=== PATIENT | female | born 1935 | race Hispanic/Latino ===

== ENCOUNTER 2017-12-29 09:12 | Day surgery (SDC) | payer MEDICARE ==
[2017-12-29] MEDS ORDERED: SUBLIMAZE IV ONE (10:20)
[2017-12-29 10:27] LABS: Basophils % (Auto) 0.5 % (0.0-1.8); Eosinophils # (Auto) 0.1 K/mm3 (0.0-0.4); Eosinophils % (Auto) 1.6 % (0.0-4.3); Hematocrit 40.5 % (30.3-42.9); Hemoglobin 13.6 gm/dl (10.1-14.3); Lymphocytes # (Auto) 1.3 K/mm3 (1.2-5.4); Lymphocytes % (Auto) 15.5 % (13.4-35.0); Mean Corpuscular HGB Conc 33 % (30-34); Mean Corpuscular Hemoglobin 27 pg (28-32); Mean Corpuscular Volume 82 fl (79-97); Monocytes # (Auto) 0.9 K/mm3 (0.0-0.8); Monocytes % (Auto) 11.2 % (0.0-7.3); Platelet Count 286 K/mm3 (140-440); Red Blood Count 4.95 M/mm3 (3.65-5.03); Red Cell Distribution Width 15.3 % (13.2-15.2)
[2017-12-29 10:38] LABS: INR 1.01 (0.87-1.13); Partial Thromboplastin Time 28.2 Sec. (24.2-36.6)
[2017-12-29] MEDS ORDERED: VERSED IV ONE (10:52)
--- NOTE | 2017-12-29 12:24 | Cat Scan Report ---
CT BIOPSY LUNG LEFT History: Left lung mass. Description of procedure: Informed consent was obtained. Sterile technique was utilized. Moderate sedation was accomplished with Versed and fentanyl. The patient was sedated for 15 minutes. Independent cardiorespiratory monitoring by RN. Intraobserver time of [address] guidance, a 19-gauge introducer needle was advanced to the margin of an approximate 4 cm cavitary mass in the posterior left lower lobe. 3 separate 2 cm 20-gauge core biopsies were obtained. Pathology was present and was satisfied with the samples. No complications. IMPRESSION: Successful CT guided biopsy of the 4 cm cavitary mass in the left lower lobe.
[2017-12-29 14:25] VITALS: BP 120/42
--- NOTE | 2017-12-29 14:30 | XRay Report ---
AP CHEST: HISTORY: Lung mass, recent CT-guided left lung biopsy Recent CT-guided biopsy of a 4 cm left lower lobe mass was performed. The mass is vaguely visualized. There is no evidence for pneumothorax. The right lung is well-aerated. Heart and mediastinal structures are unremarkable. IMPRESSION: No evidence for pneumothorax.
== END 2017-12-29 14:45 | disposition home or self-care (01) ==
LOC: CATHLABREC 09:12
PROVIDERS: ATTEND Specialist
DX: C34.32 Malignant neoplasm of lower lobe, left bronchus or lung (principal); Z79.01 Long term (current) use of anticoagulants
CPT/HCPCS: 32405; 36415; 71045; 77012; 85025; 85610; 85730; 88305; 88333; 88341; 88342; J2250; J3010; 88173

== ENCOUNTER → 2018-02-08 | Outpatient (CLI) | payer MEDICARE ==
--- NOTE | 2018-02-08 15:08 | PET Report ---
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 RADIOPHARMACEUTICAL: 13.109mCi F18-FDG. COMPARISON: CT lung biopsy 12/29/17 TECHNIQUE- Following intravenous injection of F-18 FDG and an approximately 60 minute uptake period, CT and PET images from the mid skull to the upper thighs were acquired with the patient in the fasted state. No contrast was administered. The CT protocol used for this PET CT study is designed for attenuation correction and anatomic localization of PET abnormalities. This dance instructor CT is not desired to produce and cannot replace, [id number] diagnostic CT scans with specific imaging protocols for different body parts and indications. Plasma glucose at the time of this test: 119g/dl. The standardized uptake values (SUV) are normalized to patient body weight and indicate the highest activity concentration (SUV max) in a given disease site. FINDINGS: Brain--Physiologic FDG uptake in the visualized regions of the brain. Neck--Physiologic FDG uptake in mucosal structures. 2 FDG avid left supraclavicular lymph nodes with SUV 8.1 and 4.1. The larger lymph node has a higher FDG uptake and it measures 1.8 x 1.0 cm. Chest--Physiologic FDG uptake in mediastinal blood pool and myocardium. Lungs--The recently biopsied left lower lobe cavitary mass is FDG avid mass measuring 5.9 x 3.7 cm with SUV 12.4. A left para-aortic FDG avid mass connects the cavitary mass with the left hilum and it has an SUV of 21.5. Irregular non-FDG avid reticular interstitial opacities of the left lower lobe and the posterior segment of the left upper lobe.. No other lung mass. A non-FDG avid 3 mm left upper lobe lung nodule. Extensive centrilobular emphysema. Calcified granulomas of the right upper lobe measure 6 mm and 4 mm. Pleura/pericardium--No abnormal uptake. No pleural effusion. Thoracic nodes--Extensive FDG avid a lateral hilar and mediastinal lymphadenopathy. A 2.8 cm FDG avid right hilar mass with SUV 12.4. Extensive FDG avid mediastinal lymphadenopathy as well as non-FDG avid calcified right hilar and mediastinal lymph nodes. Hepatobiliary--No abnormal uptake. Liver background SUV mean, as a reference for comparing FDG studies, is 3.0 . No liver mass. Spleen--No abnormal uptake. Pancreas--No abnormal uptake. Adrenal Glands--No abnormal uptake. No adrenal mass. Kidneys/Ureters/Bladder--No abnormal uptake. Abdominopelvic Nodes--No abnormal uptake. Bowel/Peritoneum/Mesentery--No abnormal uptake. Pelvic organs--No abnormal uptake. Bones/Soft Tissues--No abnormal uptake and no suspicious bone lesion. IMPRESSION-1. A 5.9 cm FDG avid cavitary left lower lobe squamous cell tumor. 2. Extensive bilateral hilar and mediastinal metastatic lymphadenopathy. 3. Left supraclavicular myesha metastasis. 4. No evidence of hepatic, adrenal or skeletal metastasis. 5. Extensive emphysema. 6. Old granulomatous disease involving the right upper lobe, mediastinal lymph nodes and bilateral hilar lymph nodes.
== END | disposition home or self-care (01) ==
LOC: PET 10:09
PROVIDERS: ATTEND Specialist
DX: C34.90 Malignant neoplasm of unspecified part of unspecified bronchus or lung (principal); R91.1 Solitary pulmonary nodule; J43.8 Other emphysema; J84.10 Pulmonary fibrosis, unspecified; Z88.2 Allergy status to sulfonamides; I10 Essential (primary) hypertension; M19.90 Unspecified osteoarthritis, unspecified site; F32.9 Major depressive disorder, single episode, unspecified; Z98.890 Other specified postprocedural states; Z90.49 Acquired absence of other specified parts of digestive tract; Z87.891 Personal history of nicotine dependence; Z88.0 Allergy status to penicillin
CPT/HCPCS: 78815; 82962; A9552